=== PATIENT | female | born 1960 | race Caucasian/White ===

== ENCOUNTER 2018-07-12 13:03 | Emergency (ER) | payer MEDICARE, OTHER ==
[2018-07-12] MEDS: DEXAMETHASONE 10 MG/ML 1 ML INJ PO (14:23)
[2018-07-12] MEDS: KETOROLAC 30 MG INJ IM (14:23)
== END 2018-07-12 16:36 | disposition home or self-care (01) ==
LOC: FTE 13:03
DX: M54.5 Low back pain (principal)
CPT/HCPCS: 72100; 73502; 73510; 96372; 99284-25